=== PATIENT | male | born 1965 | race Two or more races ===

== ENCOUNTER 2023-01-23 22:08 | Emergency (ER) | payer MEDICAID, OTHER ==
[~2023-01-23] VITALS: Ht 165.1 cm; Wt 82.0 kg
[2023-01-23 22:20] VITALS: BP 152/74; PULSE 105; RESP 18; O2SAT 95
[2023-01-24] MEDS ORDERED: HYDROcodone-ACET 10/325MG TAB PO ONE (01:15)
[2023-01-24] MEDS ORDERED: IBUPROFEN 600 MG TAB PO ONE (01:15)
[2023-01-24] MEDS ORDERED: MYC15TP TOP (01:30)
[2023-01-24] MEDS ORDERED: IBU600T PO (01:30)
[2023-01-24] MEDS ORDERED: ACET-1304 PO (01:30)
== END 2023-01-24 02:18 | disposition home or self-care (01) ==
LOC: EDBD 22:08 → ER 22:08
DX: M79.672 Pain in left foot (principal); M79.671 Pain in right foot; F17.210 Nicotine dependence, cigarettes, uncomplicated; Z59.00 Homelessness unspecified